=== PATIENT | female | born 1970 | race Caucasian/White ===

== ENCOUNTER → 2018-10-11 07:45 | Outpatient (CLI) | payer OTHER, SELFPAY | PROVIDERS: PCP Nurse Practitioner Family; Visit Provider Internal Medicine Rheumatology | DX: M25.512 Pain in left shoulder (principal); Z53.20 Procedure and treatment not carried out because of patient's decision for unspecified reasons; G89.29 Other chronic pain ==

== ENCOUNTER → 2020-11-10 15:56 | Outpatient (CLI) | payer OTHER, SELFPAY ==
[2020-11-10 17:21] LABS: BUN Creatinine Ratio 18.6 (6-22); Blood Urea Nitrogen 13 mg/dL (7-17); Calcium 9.5 mg/dL (8.4-10.2); Carbon Dioxide 29 mmol/L (22-32); Chloride 103 mmol/L (98-107); Estimated Glomerular Filt Rate > 60.0 mL/min (>60); Glucose 85 mg/dL (70-100); HEMOLYSIS < 15 (0-50); Sodium 139 mmol/L (137-145)
== END ==
PROVIDERS: PCP Nurse Practitioner Family; Referring Provider Nurse Practitioner Family; Visit Provider Nurse Practitioner Family
DX: I10 Essential (primary) hypertension (principal)
CPT/HCPCS: 36415; 80048

== ENCOUNTER → 2020-11-25 09:50 | Outpatient (CLI) | payer OTHER, SELFPAY ==
[2020-11-25] MEDS: COVID-19 VACC #1, MRNA(MOD) 100 MCG/0.5 ML VIAL IM (09:59)
== END ==
PROVIDERS: PCP Nurse Practitioner Family; Visit Provider Internal Medicine
DX: Z23 Encounter for immunization (principal)
CPT/HCPCS: 0011A; 91301

== ENCOUNTER → 2020-12-31 09:52 | Outpatient (CLI) | payer OTHER, SELFPAY ==
[2020-12-31] MEDS: COVID-19 VACC #2, MRNA(MOD) 100 MCG/0.5 ML VIAL IM (10:02)
== END ==
PROVIDERS: PCP Nurse Practitioner Family; Visit Provider Internal Medicine
DX: Z23 Encounter for immunization (principal)
CPT/HCPCS: 0012A; 91301

== ENCOUNTER → 2022-09-04 08:21 | Outpatient (CLI) | payer OTHER, SELFPAY ==
[2022-09-04 09:02] LABS: Add Manual Diff / Slide Review NO; Basophils Absolute Auto 100 /uL (0-100); Basophils Percent Auto 1.9 % (0-2); Eosinophils Absolute Auto 200 /uL (0-450); Eosinophils Percent Auto 3.3 % (2-4); Hematocrit 36.9 % (36-46); Hemoglobin 12.4 g/dL (12.0-16.0); Lymphocytes Absolute Auto 1500 /uL (1100-4500); Lymphocytes Percent Auto 23.9 % (25-40); Mean Corpuscular HGB Conc 33.5 % (30-36); Mean Corpuscular Hemoglobin 27.6 PG (26-34); Mean Corpuscular Volume 82.5 fL (80-100); Monocytes Absolute Auto 400 /uL (0-900); Monocytes Percent Auto 6.9 % (3-14); Neutrophils Absolute Auto 4100 /uL (1500-7000); Platelet Count 285 X10^3/uL (150-400); Red Blood Cell Count 4.48 X10^6/uL (4.0-5.2); Red Cell Distribution Width 14.9 % (11.6-14.8); White Blood Cell Count 6.4 X10^3/uL (4.5-11.0)
[2022-09-04 09:22] LABS: Alanine Aminotransferase 17 IU/L (<35); Albumin Globulin Ratio 1.4 (1.0-2.8); Alkaline Phosphatase 57 U/L (38-126); Aspartate Aminotransferase 16 IU/L (14-36); BUN Creatinine Ratio 12.7 (6-22); Bilirubin Total 0.3 mg/dL (0.2-1.3); Blood Urea Nitrogen 9 mg/dL (7-17); Carbon Dioxide 30 mmol/L (22-32); Chloride 101 mmol/L (98-107); Estimated Glomerular Filt Rate > 60 mL/min (>60); Globulin 2.8 g/dL (1.7-4.1); Glucose 86 mg/dL (70-100); HEMOLYSIS < 15 (0-50); Potassium 4.3 mmol/L (3.4-5.1); Sodium 139 mmol/L (137-145); Total Protein 6.8 g/dL (6.3-8.2)
== END ==
PROVIDERS: PCP Nurse Practitioner Family; Referring Provider Internal Medicine Gastroenterology; Visit Provider Internal Medicine Gastroenterology
DX: K51.919 Ulcerative colitis, unspecified with unspecified complications (principal); F43.10 Post-traumatic stress disorder, unspecified; F41.9 Anxiety disorder, unspecified
CPT/HCPCS: 36415; 80053; 85025; 90853

== ENCOUNTER 2023-12-31 08:11 | Emergency (ER) | payer OTHER, SELFPAY ==
[2023-12-31 08:27] VITALS: BP 199/93; PULSE 98; RESP 17; TEMP 36.6; O2SAT 96; BMI 45.7
[2023-12-31 08:37] VITALS: BP 142/75; PULSE 85; RESP 17; O2SAT 99
[2023-12-31 08:44] LABS: Add Manual Diff / Slide Review NO; Basophils Absolute Auto 100 /uL (0-100); Basophils Percent Auto 0.7 % (0-2); Eosinophils Absolute Auto 0 /uL (0-450); Eosinophils Percent Auto 0.5 % (2-4); Hematocrit 34.8 % (36-46); Hemoglobin 11.2 g/dL (12.0-16.0); Lymphocytes Absolute Auto 800 /uL (1100-4500); Lymphocytes Percent Auto 8.9 % (25-40); Mean Corpuscular HGB Conc 32.1 % (30-36); Mean Corpuscular Hemoglobin 25.5 PG (26-34); Mean Corpuscular Volume 79.4 fL (80-100); Monocytes Absolute Auto 800 /uL (0-900); Monocytes Percent Auto 9.7 % (3-14); Neutrophils Absolute Auto 6900 /uL (1500-7000); Neutrophils Percent Auto 80.2 % (50-75); Platelet Count 316 X10^3/uL (150-400); Red Blood Cell Count 4.38 X10^6/uL (4.0-5.2); Red Cell Distribution Width 17.2 % (11.6-14.8); White Blood Cell Count 8.5 X10^3/uL (4.5-11.0)
[2023-12-31 08:51] LABS: INR 1.1 (0.9-1.3); Prothrombin Time 12.8 SECONDS (9.4-12.5)
[2023-12-31 08:55] LABS: Alanine Aminotransferase 17 IU/L (<35); Albumin 3.9 g/dL (3.5-5.0); Albumin Globulin Ratio 1.3 (1.0-2.8); Alkaline Phosphatase 50 U/L (38-126); Aspartate Aminotransferase 16 IU/L (14-36); BUN Creatinine Ratio 16.5 (6-22); Bilirubin Total 0.4 mg/dL (0.2-1.3); Blood Urea Nitrogen 13 mg/dL (7-17); Calcium 8.7 mg/dL (8.4-10.2); Carbon Dioxide 29 mmol/L (22-32); Chloride 103 mmol/L (98-107); Estimated Glomerular Filt Rate > 60 mL/min (>60); Globulin 2.9 g/dL (1.7-4.1); Glucose 129 mg/dL (70-100); HEMOLYSIS < 15 (0-50); Lipase 33 U/L (23-300); Potassium 4.2 mmol/L (3.4-5.1); Sodium 135 mmol/L (137-145); Total Protein 6.8 g/dL (6.3-8.2)
[2023-12-31 08:56] LABS: Lactate (Lactic Acid) 1.3 mmol/L (0.7-2.1)
--- NOTE | 2023-12-31 10:12 | ED_ITS ---
HPI - GI Bleed General Chief complaint: GI Bleed Stated complaint: Bad Ulcerative Colitis symptoms Time Seen by Provider: 12/31/23 09:59 Source: patient, RN notes reviewed and old records reviewed Mode of arrival: Ambulatory Limitations: no limitations History of Present Illness HPI Narrative: 53-year-old female with history of ulcerative colitis on sulfasalazine at baseline, patient presents with complaint of flare for at least 3 weeks. She has been on oral prednisone for about 3 weeks they just started tapering a few days ago she is currently at 30 mg. Patient states no fevers, no nausea or vomiting. She is felt warm a few times. She describes abdominal pain feels fairly similar to her prior flares. She states she also has some rectal pain and cramping. She has had blood in her stool that has been persistent over the past several days. She is describing watery diarrhea with some blood mixed in 10-12 times daily. She states no large clots. No syncope or lightheadedness. Patient states she is on sulfasalazine, duloxetine, pregabalin and lorazepam. She has had prior hiatal hernia repair, cholecystectomy. No known drug allergies. Patient states she has had a colonoscopy in October which did show flare at that time. She denies any alcohol or recreational drugs. She does use tobacco daily. She follows with Dr. Barnes with gastroenterology at [facility]. Patient has been in touch with her GI physician and was asked to come here for further evaluation and possibly IV steroids. Related Data Home Medications Medication Instructions Recorded Confirmed cholecalciferol (vitamin D3) 25 2,000 unit PO DAILY 01/28/19 01/25/23 mcg (1,000 unit) capsule multivitamin with minerals 3 tab PO DAILY 01/28/19 01/25/23 (Hair,Skin and Nails tablet) soy isoflavone-black cohosh 1 cap PO DAILY 01/28/19 01/25/23 root-magnolia bark 155 mg capsule (Estroven) sulfasalazine 500 mg tablet 1 gram PO BID 01/28/19 01/25/23 Previous Rx's Medication Instructions Recorded prazosin 1 mg capsule 1 mg PO BEDTIME #90 caps 06/28/23 duloxetine 60 mg capsule,delayed 60 mg PO BID #180 caps 10/16/23 release pregabalin 300 mg capsule 300 mg PO BID #180 caps 11/30/23 lorazepam 0.5 mg tablet 0.5 mg PO BID #60 tabs 12/25/23 Allergies Allergy/AdvReac Type Severity Reaction Status Date / Time No Known Drug Allergies Allergy Verified 01/25/23 11:34 Review of Systems Review of Systems ROS Unobtainable: All systems reviewed & are unremarkable except as noted in HPI and below Patient History Social History Smoking Status: Current every day smoker Smoking Status: Current every day smoker alcohol intake frequency: other Substance Use Type: does not use Exam Narrative Exam Narrative: GENERAL: Alert and oriented x three, female in mild distress. HEENT: Head normocephalic, atraumatic, EOMI, pupils reactive, face symmetric, moist mucous membranes NECK: Supple, full range of motion CARDIOVASCULAR: Regular rate and rhythm without murmurs, rubs or gallops. RESPIRATORY: Breath sounds equal bilaterally, no wheezes rales or rhonchi. ABDOMEN: Soft, mild generalized tenderness. Normoactive bowel sounds all 4 quadrants. No guarding or rebound, rigidity, no mass : No CVA tenderness EXTREMITIES: Normal range of motion, no clubbing or edema. Neurovascularly intact NEUROLOGICAL: Cranial nerves II through XII grossly intact. Moving all extremities SKIN: Warm, dry, no petechiae, no rashes or lesions. Initial Vital Signs Initial Vital Signs: Vital Signs Temperature 98 F 12/31/23 08:27 Pulse Rate 98 H 12/31/23 08:27 Respiratory Rate 17 12/31/23 08:27 Blood Pressure 199/93 H 12/31/23 08:27 Pulse Oximetry 96 12/31/23 08:27 Oxygen Delivery Method Room Air 12/31/23 08:27 Course Orders Ordered: Discontinued Medications Sodium Chloride (Normal Saline 0.9%) 1,000 mls @ 1,000 mls/hr IV BOLUS ONE Stop: 12/31/23 10:12 Last Infusion: 12/31/23 11:20 Dose: Infused Documented By: Admin: 12/31/23 10:18 Dose: 1,000 mls/hr Documented By: BERNADETTE Ketorolac Tromethamine (Ketorolac 30 Mg/Ml Vial) 15 mg IV NOW ONE Stop: 12/31/23 11:16 Last Admin: 06/10/24 11:42 Dose: 15 mg Documented By: JAIME Methylprednisolone (Methylprednisolone 125 Mg/2 Ml Vial) 125 mg IV NOW ONE Stop: 12/31/23 11:16 Last Admin: 12/31/23 11:43 Dose: 125 mg Documented By: JAIME Ondansetron HCl (Ondansetron 4 Mg/2 Ml Inj) 4 mg IV NOW PRN PRN Reason: Nausea And Vomiting Last Admin: 12/31/23 11:42 Dose: 4 mg Documented By: JAIME Ondansetron HCl (Ondansetron 4 Mg Odt) 4 mg PO NOW PRN PRN Reason: Nausea And Vomiting Vital Signs Vital signs: Vital Signs - 8 hr 12/31/23 08:27 12/31/23 08:37 Temperature 98 F Pulse Rate 98 H 85 Respiratory Rate 17 17 Blood Pressure 199/93 H 142/75 H Pulse Oximetry 96 99 Oxygen Delivery Method Room Air Room Air MDM - GI Bleed Lab Data 12/31/23 08:34 12/31/23 08:34 Labs: Lab Results 12/31/23 Range/Units 08:34 WBC 8.5 (4.5-11.0) X10^3/uL RBC 4.38 (4.0-5.2) X10^6/uL Hgb 11.2 L (12.0-16.0) g/dL Hct 34.8 L (36-46) % MCV 79.4 L (80-100) fL MCH 25.5 L (26-34) PG MCHC 32.1 (30-36) % RDW 17.2 H (11.6-14.8) % Plt Count 316 (150-400) X10^3/uL Neut % (Auto) 80.2 H (50-75) % Lymph % (Auto) 8.9 L (25-40) % Bibb % (Auto) 9.7 (3-14) % Eos % (Auto) 0.5 L (2-4) % Baso % (Auto) 0.7 (0-2) % Neut # (Auto) 6900 (9560-4882) /uL Lymph # (Auto) 800 L (9954-0367) /uL Bibb # (Auto) 800 (0-900) /uL Eos # (Auto) 0 (0-450) /uL Baso # (Auto) 100 (0-100) /uL PT 12.8 H (9.4-12.5) SECONDS INR 1.1 (0.9-1.3) Sodium 135 L (137-145) mmol/L Potassium 4.2 (3.4-5.1) mmol/L Chloride 103 (98-107) mmol/L Carbon Dioxide 29 (22-32) mmol/L BUN 13 (7-17) mg/dL Creatinine 0.79 (0.52-1.04) mg/dL Estimated GFR > 60 (>60) mL/min BUN/Creatinine Ratio 16.5 (6-22) Glucose 129 H (70-100) mg/dL Lactate 1.3 (0.7-2.1) mmol/L Calcium 8.7 (8.4-10.2) mg/dL Total Bilirubin 0.4 (0.2-1.3) mg/dL AST 16 (14-36) IU/L ALT 17 (<35) IU/L Alkaline Phosphatase 50 (38-126) U/L Total Protein 6.8 (6.3-8.2) g/dL Albumin 3.9 (3.5-5.0) g/dL Globulin 2.9 (1.7-4.1) g/dL Albumin/Globulin Ratio 1.3 (1.0-2.8) Lipase 33 (23-300) U/L Urine Dip Bedside Urine Glucose Negative Bedside Urine Bilirubin - Negative Bedside Urine Ketone - Negative Urine Specific [place] 1.015 Bedside Urine Occult Blood + Bedside Urine pH 6.0 Bedside Urine Protein - Negative Bedside Urine Urobilinogen - Negative Bedside Urine Nitrite - Negative Bedside Urine Leukocytes - Negative Esterase Imaging Data CT scan - abdomen/pelvis: Radiologist's Impression: Close Abdomen/Pelvis CT (Signed) AdarshGaurang - 12/31/23 Launch?[address] [address] [address] Scan Report Signed Patient: Giorgio Strickland MR#: [id number] : 1970 Acct:[id number] Age/Sex: 53 / F Date of Service: 12/31/23 Loc: ED Accession Number: [id number] Procedure: CT abdomen pelvis w con Ordering Provider: Gricelda Kearney D.O. PROCEDURE: CT ABDOMEN PELVIS W CON INDICATIONS: ulcerative colitis flare + 3 weeks, rectal bleeding TECHNIQUE: After the administration of intravenous contrast, axial sections acquired from the lung bases to the pubic symphysis. Coronal and sagittal reformats were performed. For radiation dose reduction, the following was used: automated exposure control, adjustment of mA and/or kV according to patient size. COMPARISON: [facility], CT, ABD/PELVIS W/CON (PNL), 02/01/2015, 10:46. FINDINGS: Image quality: Diagnostic. Lower Chest: No significant findings. ABDOMEN: Liver: No solid mass. Gallbladder: Surgically absent Biliary ducts: No biliary dilation. Pancreas: No ductal dilation. Spleen: Size is within normal limits. Adrenal Glands: No adrenal nodules. Kidneys and Ureters: No hydronephrosis. No solid mass. No complex renal cystic lesion which requires follow up. Stomach and Bowel: The colon has a relatively ahaustral pattern with mild diffuse wall thickening and mild inflammatory change in the adjacent fat. The sigmoid and rectum are decompressed. Cannot exclude a sessile lesion involving the ascending colon on image 56/2. There are small lymph nodes in the adjacent fat. Reference image 47/2 and 57/2. Peritoneum: No abnormal intraperitoneal fluid. No free air. Ventral Wall: No significant ventral hernia. Abdominal Nodes: No retroperitoneal or mesenteric adenopathy by size criteria. Vessels: Aorta and inferior vena cava are normal in size. PELVIS: Pelvic Organs: Unremarkable. Bladder: No bladder wall thickening, accounting for underdistention. Pelvic Nodes: No enlarged lymph nodes. Miscellaneous: No inguinal hernias are seen. Bones: No aggressive osseous abnormality. IMPRESSION: 1. Findings are consistent with ulcerative colitis involving the entire:. 2. Cannot exclude a sessile lesion of the ascending colon. 3. Nonspecific small lymph nodes immediately adjacent to the ascending colon. 4. No perforation. No significant bowel dilatation. Comment: Recommend direct visualization after acute symptoms resolve to exclude a developing mass. Dictated by: Gaurang Altamirano M.D. on 12/31/2023 at 12:43 Approved by: Gaurang Altamirano M.D. on 12/31/2023 at 12:50 MDM Narrative Medical decision making narrative: Labs show white count of 8.5 hemoglobin of 11.2 patient was 12.4 in August of 2022, patient has microcytic. Platelets are 316. INR is 1.1 sodium is 135 potassium is 4.2 chloride 103 CO2 of 29 BUN 13 creatinine 0.79, glucose is 129, lactate 1.3 with otherwise normal LFTs. CT abdomen pelvis shows findings consistent with ulcerative colitis throughout the entire colon can not exclude sessile lesion ascending colon. Small lymph nodes immediately adjacent ascending colon. No perforation no significant bowel dilation. GI panel was ordered patient has not been able to give stool sample. Patient was given script as well as specimen cup and hat. Discussed with patient she feels comfortable with this plan. Spoke with Gastroenterology at [facility]. Dr. Green plan to discharge with urgent appointment to start on injection medication. Continue sulfasalazine and prednisone currently. We will give patient has specimen cup so she can drop off a stool sample. Discharge Plan Departure Patient Disposition: Home Clinical Impression: Ulcerative colitis Instructions: DI for Ulcerative Colitis Activity Restrictions/Additional Instructions: I spoke with Dr. Green from your gastroenterology team. She would like to have you scheduled for an urgent appointment to be started on additional medications for your ulcerative colitis. She asked that you call the office to set that up. A specimen cup has been provided if you are able to give a sample for GI panel. Order is included with your discharge paperwork. Continue your other current medications as prescribed. Please return for fevers, new or worsening abdominal back or flank pain, persistent vomiting, increasing rectal bleeding, lightheadedness or passing out or other new or concerning changes. Prescriptions: No Action prazosin 1 mg capsule 1 mg PO BEDTIME Qty: 90 2RF duloxetine 60 mg capsule,delayed release(DR/EC) 60 mg PO BID Qty: 180 3RF sulfasalazine 500 mg tablet 1 gram PO BID multivitamin with minerals [Hair,Skin and Nails] tablet 3 tab PO DAILY cholecalciferol (vitamin D3) 1,000 unit capsule 2,000 unit PO DAILY Estroven 155 mg capsule 1 cap PO DAILY pregabalin 300 mg capsule 300 mg PO BID Qty: 180 1RF lorazepam 0.5 mg tablet 0.5 mg PO BID Qty: 60 2RF Referrals: Neeru Moreland ARNP [Primary Care Provider] - Stand Alone Forms: Patient Portal/API
[2023-12-31] MEDS: SODIUM CHLORIDE 0.9% 1,000 ML 1000 ML IV (10:18)
--- NOTE | 2023-12-31 11:15 | DI.CT.S_ITS ---
PROCEDURE: CT ABDOMEN PELVIS W CON INDICATIONS: ulcerative colitis flare + 3 weeks, rectal bleeding TECHNIQUE: After the administration of intravenous contrast, axial sections acquired from the lung bases to the pubic symphysis. Coronal and sagittal reformats were performed. For radiation dose reduction, the following was used: automated exposure control, adjustment of mA and/or kV according to patient size. COMPARISON: [facility], CT, ABD/PELVIS W/CON (PNL), 02/01/2015, 10:46. FINDINGS: Image quality: Diagnostic. Lower Chest: No significant findings. ABDOMEN: Liver: No solid mass. Gallbladder: Surgically absent Biliary ducts: No biliary dilation. Pancreas: No ductal dilation. Spleen: Size is within normal limits. Adrenal Glands: No adrenal nodules. Kidneys and Ureters: No hydronephrosis. No solid mass. No complex renal cystic lesion which requires follow up. Stomach and Bowel: The colon has a relatively ahaustral pattern with mild diffuse wall thickening and mild inflammatory change in the adjacent fat. The sigmoid and rectum are decompressed. Cannot exclude a sessile lesion involving the ascending colon on image 56/2. There are small lymph nodes in the adjacent fat. Reference image 47/2 and 57/2. Peritoneum: No abnormal intraperitoneal fluid. No free air. Ventral Wall: No significant ventral hernia. Abdominal Nodes: No retroperitoneal or mesenteric adenopathy by size criteria. Vessels: Aorta and inferior vena cava are normal in size. PELVIS: Pelvic Organs: Unremarkable. Bladder: No bladder wall thickening, accounting for underdistention. Pelvic Nodes: No enlarged lymph nodes. Miscellaneous: No inguinal hernias are seen. Bones: No aggressive osseous abnormality. IMPRESSION: 1. Findings are consistent with ulcerative colitis involving the entire:. 2. Cannot exclude a sessile lesion of the ascending colon. 3. Nonspecific small lymph nodes immediately adjacent to the ascending colon. 4. No perforation. No significant bowel dilatation. Comment: Recommend direct visualization after acute symptoms resolve to exclude a developing mass. Dictated by: Gaurang Altamirano M.D. on 12/31/2023 at 12:43 Approved by: Gaurang Altamirano M.D. on 12/31/2023 at 12:50
[2023-12-31] MEDS: KETOROLAC 30 MG/ML VIAL 15 MG IV (11:42)
[2023-12-31] MEDS: ONDANSETRON 4 MG/2 ML INJ IV (11:42)
[2023-12-31] MEDS: methylPREDNISolone 125 MG/2 ML VIAL IV (11:43)
[2023-12-31 13:41] VITALS: TEMP 36.5
== END 2023-12-31 14:15 | disposition home or self-care (01) ==
PROVIDERS: Emergency Provider Emergency Medicine; PCP Nurse Practitioner Family
DX: K51.90 Ulcerative colitis, unspecified, without complications (principal)
CPT/HCPCS: 36415; 74177; 80053; 81003; 83605; 83690; 85025; 85610; 96374; 96375; 99284; J1885; J2405; J2919; Q9967

== ENCOUNTER 2024-01-19 12:17 | Emergency (ER) | payer OTHER, SELFPAY ==
[2024-01-19 12:30] VITALS: BP 163/81; PULSE 84; RESP 18; TEMP 36.8; O2SAT 98; BMI 44.1
[2024-01-19 13:11] LABS: Add Manual Diff / Slide Review NO; Basophils Absolute Auto 0 /uL (0-100); Basophils Percent Auto 0.2 % (0-2); Eosinophils Absolute Auto 0 /uL (0-450); Eosinophils Percent Auto 0.1 % (2-4); Hematocrit 34.4 % (36-46); Hemoglobin 11.1 g/dL (12.0-16.0); Lymphocytes Absolute Auto 800 /uL (1100-4500); Lymphocytes Percent Auto 11.9 % (25-40); Mean Corpuscular HGB Conc 32.2 % (30-36); Mean Corpuscular Volume 77.8 fL (80-100); Monocytes Absolute Auto 400 /uL (0-900); Monocytes Percent Auto 6.2 % (3-14); Neutrophils Absolute Auto 5400 /uL (1500-7000); Neutrophils Percent Auto 81.6 % (50-75); Platelet Count 353 X10^3/uL (150-400); Red Blood Cell Count 4.42 X10^6/uL (4.0-5.2); Red Cell Distribution Width 17.2 % (11.6-14.8); White Blood Cell Count 6.6 X10^3/uL (4.5-11.0)
[2024-01-19 13:31] LABS: Alanine Aminotransferase 19 IU/L (<35); Albumin 3.7 g/dL (3.5-5.0); Albumin Globulin Ratio 1.3 (1.0-2.8); Alkaline Phosphatase 47 U/L (38-126); Aspartate Aminotransferase 17 IU/L (14-36); BUN Creatinine Ratio 17.3 (6-22); Bilirubin Total 0.5 mg/dL (0.2-1.3); Blood Urea Nitrogen 13 mg/dL (7-17); Calcium 8.8 mg/dL (8.4-10.2); Carbon Dioxide 31 mmol/L (22-32); Chloride 102 mmol/L (98-107); Estimated Glomerular Filt Rate > 60 mL/min (>60); Globulin 2.8 g/dL (1.7-4.1); Glucose 125 mg/dL (70-100); HEMOLYSIS < 15 (0-50); Lipase 84 U/L (23-300); Potassium 4.4 mmol/L (3.4-5.1); Sodium 138 mmol/L (137-145); Total Protein 6.5 g/dL (6.3-8.2)
--- NOTE | 2024-01-19 13:45 | ED.GENADULT ---
HPI - General Adult General Chief complaint: Abdominal Pain Stated complaint: collitis severe Time Seen by Provider: 01/19/24 13:44 Source: patient, RN notes reviewed and old records reviewed Mode of arrival: Ambulatory Limitations: no limitations History of Present Illness HPI narrative: 53-year-old female with a history of ulcerative colitis on sulfasalazine baseline, patient presents with complaint of persistent flare since October or November. Patient has continued to be on oral prednisone she is currently at 40 mg daily since she was seen here earlier in December. Patient states she has not had fevers, she has been sweaty intermittently. She denies any nausea or vomiting. Did not describes abdominal pain, cramping, gurgling, she has occasionally had blood in her stool but not persistent or increasing. She has been taking [place] prescribed by her primary care physician for pain which has been helpful. She states it has mild improvement on her diarrhea. She has frequent diarrhea 10 times daily and had 2 episodes where she woke up with stool in bed. She has not had any daytime incontinence. She denies any urinary symptoms. She did have sounds like a GI panel or at least a C diff checked yesterday by Gastroenterology which he states was negative. She states this seemed to be initially worsened by a colonoscopy in October which did show a flare. She has a prior hiatal hernia repair, cholecystectomy. No known drug allergies. She does use tobacco daily, no regular alcohol or recreational drugs. 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 She is supposed to see Dr. Barnes her new format proofreader at [facility] SundayJanuary 20. Related Data Home Medications Medication Instructions Recorded Confirmed cholecalciferol (vitamin D3) 25 2,000 unit PO DAILY 01/28/19 01/25/23 mcg (1,000 unit) capsule multivitamin with minerals 3 tab PO DAILY 01/28/19 01/25/23 (Hair,Skin and Nails tablet) soy isoflavone-black cohosh 1 cap PO DAILY 01/28/19 01/25/23 root-magnolia bark 155 mg capsule (Estroven) sulfasalazine 500 mg tablet 1 gram PO BID 01/28/19 01/25/23 Previous Rx's Medication Instructions Recorded prazosin 1 mg capsule 1 mg PO BEDTIME #90 caps 06/28/23 duloxetine 60 mg capsule,delayed 60 mg PO BID #180 caps 10/16/23 release pregabalin 300 mg capsule 300 mg PO BID #180 caps 11/30/23 lorazepam 0.5 mg tablet 0.5 mg PO BID #60 tabs 12/25/23 Allergies Allergy/AdvReac Type Severity Reaction Status Date / Time No Known Drug Allergies Allergy Verified 01/19/24 12:30 Review of Systems Review of Systems ROS Unobtainable: All systems reviewed & are unremarkable except as noted in HPI and below Patient History Social History Smoking Status: Current every day smoker Smoking Status: Current every day smoker alcohol intake frequency: other Substance Use Type: does not use Exam Narrative Exam Narrative: GENERAL: Alert and oriented x three, female in mild distress HEENT: Head normocephalic, atraumatic, EOMI, pupils reactive, face symmetric, moist mucous membranes NECK: Supple, full range of motion CARDIOVASCULAR: Regular rate and rhythm without murmurs, rubs or gallops. RESPIRATORY: Breath sounds equal bilaterally, no wheezes rales or rhonchi. ABDOMEN: Soft, generalized lower abdominal tenderness. Mildly distended. Normoactive bowel sounds all 4 quadrants. No guarding or rebound, rigidity, no mass : No CVA tenderness EXTREMITIES: Normal range of motion, no clubbing or edema. Neurovascularly intact NEUROLOGICAL: Cranial nerves II through XII grossly intact. Moving all extremities SKIN: Warm, dry, no petechiae, no rashes or lesions. Initial Vital Signs Initial Vital Signs: Vital Signs Temperature 98.3 F 01/19/24 12:30 Pulse Rate 84 01/19/24 12:30 Respiratory Rate 18 01/19/24 12:30 Blood Pressure 163/81 H 01/19/24 12:30 Pulse Oximetry 98 01/19/24 12:30 Oxygen Delivery Method Room Air 01/19/24 12:30 Course Orders Ordered: Discontinued Medications Sodium Chloride (Normal Saline 0.9%) 1,000 mls @ 1,000 mls/hr IV BOLUS ONE Stop: 01/19/24 15:26 Last Infusion: 01/19/24 16:05 Dose: Infused Documented By: Admin: 01/19/24 14:57 Dose: 1,000 mls/hr Documented By: PITA Ketorolac Tromethamine (Ketorolac 30 Mg/Ml Vial) 15 mg IV NOW ONE Stop: 01/19/24 14:28 Last Admin: 01/19/24 14:58 Dose: 15 mg Documented By: SPF Methylprednisolone (Methylprednisolone 125 Mg/2 Ml Vial) 125 mg IV NOW ONE Stop: 01/19/24 16:35 Last Admin: 01/19/24 16:41 Dose: 125 mg Documented By: SPF Ondansetron HCl (Ondansetron 4 Mg/2 Ml Inj) 4 mg IV NOW PRN PRN Reason: Nausea And Vomiting Ondansetron HCl (Ondansetron 4 Mg Odt) 4 mg PO NOW PRN PRN Reason: Nausea And Vomiting Vital Signs Vital signs: Vital Signs - 8 hr 01/19/24 12:30 01/19/24 16:11 01/19/24 16:11 Temperature 98.3 F Pulse Rate 84 69 Respiratory Rate 18 Blood Pressure 163/81 H 158/73 H Pulse Oximetry 98 97 Oxygen Delivery Method Room Air Room Air Medical Decision Making Lab Data 01/19/24 12:59 01/19/24 12:59 Labs: Lab Results 01/19/24 Range/Units 12:59 WBC 6.6 (4.5-11.0) X10^3/uL RBC 4.42 (4.0-5.2) X10^6/uL Hgb 11.1 L (12.0-16.0) g/dL Hct 34.4 L (36-46) % MCV 77.8 L (80-100) fL MCH 25.0 L (26-34) PG MCHC 32.2 (30-36) % RDW 17.2 H (11.6-14.8) % Plt Count 353 (150-400) X10^3/uL Neut % (Auto) 81.6 H (50-75) % Lymph % (Auto) 11.9 L (25-40) % [place] % (Auto) 6.2 (3-14) % Eos % (Auto) 0.1 L (2-4) % Baso % (Auto) 0.2 (0-2) % Neut # (Auto) 5400 (3969-6268) /uL Lymph # (Auto) 800 L (2745-8469) /uL [place] # (Auto) 400 (0-900) /uL Eos # (Auto) 0 (0-450) /uL Baso # (Auto) 0 (0-100) /uL Sodium 138 (137-145) mmol/L Potassium 4.4 (3.4-5.1) mmol/L Chloride 102 (98-107) mmol/L Carbon Dioxide 31 (22-32) mmol/L BUN 13 (7-17) mg/dL Creatinine 0.75 (0.52-1.04) mg/dL Estimated GFR > 60 (>60) mL/min BUN/Creatinine Ratio 17.3 (6-22) Glucose 125 H (70-100) mg/dL Calcium 8.8 (8.4-10.2) mg/dL Total Bilirubin 0.5 (0.2-1.3) mg/dL AST 17 (14-36) IU/L ALT 19 (<35) IU/L Alkaline Phosphatase 47 (38-126) U/L Total Protein 6.5 (6.3-8.2) g/dL Albumin 3.7 (3.5-5.0) g/dL Globulin 2.8 (1.7-4.1) g/dL Albumin/Globulin Ratio 1.3 (1.0-2.8) Lipase 84 (23-300) U/L Imaging Data CT scan - abdomen/pelvis: Radiologist's Impression: [place] [address] CT Scan Report Signed Patient: Giorgio Strickland MR#: [id number] : 1970 Acct:[id number] Age/Sex: 53 / F Date of Service: 01/19/24 Loc: ED Accession Number: [id number] Procedure: CT abdomen pelvis w con Ordering Provider: Gricelda Kearney D.O. PROCEDURE: CT ABDOMEN PELVIS W CON INDICATIONS: abd pain, diarrhea blood, not improving, hx ulcerative colit TECHNIQUE: After the administration of intravenous contrast, axial sections acquired from the lung bases to the pubic symphysis. Coronal and sagittal reformats were performed. For radiation dose reduction, the following was used: automated exposure control, adjustment of mA and/or kV according to patient size. COMPARISON: [facility], CT, CT ABDOMEN PELVIS W CON, 12/31/2023, 11:50. FINDINGS: Image quality: Diagnostic. Lower Chest: No significant findings. ABDOMEN: Liver: No solid mass. Gallbladder: Surgically absent. Biliary ducts: No biliary dilation. Pancreas: No ductal dilation. Spleen: Size is within normal limits. Adrenal Glands: No adrenal nodules. Kidneys and Ureters: No hydronephrosis. No solid mass. No complex renal cystic lesion which requires follow up. Stomach and Bowel: Mild colonic wall thickening and pericolonic inflammatory changes involving the majority of the colon from the rectum through the transverse colon. Peritoneum: No abnormal intraperitoneal fluid. No free air. Ventral Wall: No significant ventral hernia. Abdominal Nodes: No retroperitoneal or mesenteric adenopathy by size criteria. Vessels: Aorta and inferior vena cava are normal in size. Atherosclerotic vascular calcifications. PELVIS: Pelvic Organs: Left ovary appears enlarged measuring approximately 5.4 x 3.3 centimeters. Right ovary is not seen.. Bladder: No bladder wall thickening, accounting for underdistention. Pelvic Nodes: No enlarged lymph nodes. Miscellaneous: No inguinal hernias are seen. Bones: No aggressive osseous abnormality. Degenerative changes of the spine. IMPRESSION: 1. Redemonstration of colonic wall thickening spanning the rectum through the transverse colon, consistent with history of ulcerative colitis. 2. Left ovary appears enlarged, stable compared to prior exam. This is of uncertain clinical significance. Consider nonurgent pelvic ultrasound for further evaluation. Dictated by: Alejandro Garcia M.D. on 01/19/2024 at 14:36 Approved by: Alejandro Garcia M.D. on 01/19/2024 at 14:41 ECG Data Attestation: I personally reviewed and interpreted this ECG as follows: Prior ECG tracings: not available for review Interpretation: Sinus rhythm rate of 65 NC 158 QRS of 98 QTC of 428, no acute ST elevation. No prior. MDM Narrative Medical decision making narrative: 53-year-old female with history of ulcerative colitis who follows with [facility]. Patient has been on prednisone for 3 months, she had a stool yesterday which was negative at [facility] for C diff. intense when she was here I had spoken with Gastroenterology when I saw her and there was discussion about starting injection medications. Patient states [place] Count of 6.6 hemoglobin of 11, Mag microcytic anemia, platelets of 353. Patient's electrolytes overall appropriate creatinine 0.75, BUN 13 glucose of 125- LFTs. Patient had CT abdomen pelvis on 12/31/2023 with findings consistent with ulcerative colitis involving the entire colon could not exclude sessile lesion involving the ascending colon. No perforation no significant bowel dilation. Discussed with patient about repeating abdomen and pelvis CT, rule out abscess or fluid collection change. Patient is agreeable. CT shows redemonstration colonic wall thickening spanning rectum through transverse colon consistent with history of ulcerative colitis, left ovary appears enlarged stable compared to prior exam uncertain clinical significance consider Consultation with gastroenterology at [facility], Dr. Flowers patient is to be seen on Sunday he confirmed patient's appointment. No additional changes this weekend but they will try to get her started on biologics after appointment on Sunday. Discharge Plan Departure Patient Disposition: Home Clinical Impression: Ulcerative colitis Activity Restrictions/Additional Instructions: Your CT imaging does show colonic wall thickening from the transverse colon to the rectum consistent with ulcerative colitis. You also have a slightly enlarged left ovary stable compared to prior CT on 12/31/2023 recommended have follow up with ultrasound. Please let your physician know so they can order this. Follow up with Gastroenterology at your appointment on Sunday. I did speak with Dr. Flowers, they would like to start you on a biologic medication will work on this to get you started on Sunday. Continue to take the hydrocodone as prescribed by your physician. Please return for fevers, rapidly worsening symptoms, lightheadedness or passing out, persistent, increasing bleeding or large clots or other new or concerning changes. Prescriptions: No Action prazosin 1 mg capsule 1 mg PO BEDTIME Qty: 90 2RF duloxetine 60 mg capsule,delayed release(DR/EC) 60 mg PO BID Qty: 180 3RF sulfasalazine 500 mg tablet 1 gram PO BID multivitamin with minerals [Hair,Skin and Nails] tablet 3 tab PO DAILY cholecalciferol (vitamin D3) 1,000 unit capsule 2,000 unit PO DAILY Estroven 155 mg capsule 1 cap PO DAILY pregabalin 300 mg capsule 300 mg PO BID Qty: 180 1RF lorazepam 0.5 mg tablet 0.5 mg PO BID Qty: 60 2RF Referrals: Neeru Moreland ARNP [Primary Care Provider] - Stand Alone Forms: Patient Portal/API
--- NOTE | 2024-01-19 14:26 | DI.CT.S_ITS ---
PROCEDURE: CT ABDOMEN PELVIS W CON INDICATIONS: abd pain, diarrhea blood, not improving, hx ulcerative colit TECHNIQUE: After the administration of intravenous contrast, axial sections acquired from the lung bases to the pubic symphysis. Coronal and sagittal reformats were performed. For radiation dose reduction, the following was used: automated exposure control, adjustment of mA and/or kV according to patient size. COMPARISON: [facility], CT, CT ABDOMEN PELVIS W CON, 12/31/2023, 11:50. FINDINGS: Image quality: Diagnostic. Lower Chest: No significant findings. ABDOMEN: Liver: No solid mass. Gallbladder: Surgically absent. Biliary ducts: No biliary dilation. Pancreas: No ductal dilation. Spleen: Size is within normal limits. Adrenal Glands: No adrenal nodules. Kidneys and Ureters: No hydronephrosis. No solid mass. No complex renal cystic lesion which requires follow up. Stomach and Bowel: Mild colonic wall thickening and pericolonic inflammatory changes involving the majority of the colon from the rectum through the transverse colon. Peritoneum: No abnormal intraperitoneal fluid. No free air. Ventral Wall: No significant ventral hernia. Abdominal Nodes: No retroperitoneal or mesenteric adenopathy by size criteria. Vessels: Aorta and inferior vena cava are normal in size. Atherosclerotic vascular calcifications. PELVIS: Pelvic Organs: Left ovary appears enlarged measuring approximately 5.4 x 3.3 centimeters. Right ovary is not seen.. Bladder: No bladder wall thickening, accounting for underdistention. Pelvic Nodes: No enlarged lymph nodes. Miscellaneous: No inguinal hernias are seen. Bones: No aggressive osseous abnormality. Degenerative changes of the spine. IMPRESSION: 1. Redemonstration of colonic wall thickening spanning the rectum through the transverse colon, consistent with history of ulcerative colitis. 2. Left ovary appears enlarged, stable compared to prior exam. This is of uncertain clinical significance. Consider nonurgent pelvic ultrasound for further evaluation. Dictated by: Alejandro Garcia M.D. on 01/19/2024 at 14:36 Approved by: Alejandro Garcia M.D. on 01/19/2024 at 14:41
[2024-01-19] MEDS: SODIUM CHLORIDE 0.9% 1,000 ML 1000 ML IV (14:57)
[2024-01-19] MEDS: KETOROLAC 30 MG/ML VIAL 15 MG IV (14:58)
--- NOTE | 2024-01-19 14:59 | EKG_ITS ---
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
[2024-01-19 16:11] VITALS: BP 158/73; PULSE 69; O2SAT 97
[2024-01-19 16:30] VITALS: PULSE 69; O2SAT 91
[2024-01-19 16:31] VITALS: BP 152/70; PULSE 69; O2SAT 94
[2024-01-19] MEDS: methylPREDNISolone 125 MG/2 ML VIAL IV (16:41)
[2024-01-19 16:59] VITALS: BP 150/75; PULSE 65; O2SAT 94
[2024-01-19 17:00] VITALS: PULSE 66; O2SAT 94
== END 2024-01-19 17:10 | disposition home or self-care (01) ==
PROVIDERS: Emergency Provider Emergency Medicine; PCP Nurse Practitioner Family
DX: K51.90 Ulcerative colitis, unspecified, without complications (principal)
CPT/HCPCS: 36415; 74177; 80053; 83690; 85025; 93005; 96361; 96374; 96375; 99284; J1885; J2919; Q9967